=== PATIENT | female | born 1990 | race Caucasian/White ===

== ENCOUNTER 2020-06-16 07:32 | Outpatient (CLI) | payer BC, SELFPAY ==
[2020-06-16 08:18] LABS: Basophils Absolute Auto 0.1 K/mm3 (0.0-0.1); Basophils Percent Auto 0.7 % (0.2-1.2); Eosinophils Absolute Auto 0.4 K/mm3 (0-0.3); Eosinophils Percent Auto 4.2 % (0-4.4); Hematocrit 39.1 % (37.0-47.0); Immature Granulocyte Absolute 0.03 K/mm3 (0.00-0.031); Immature Granulocyte Percent A 0.3 % (0-0.5); Lymphocytes Percent Auto 35.5 % (18.3-44.2); Mean Corpuscular HGB Conc 33.2 g/dl (32-36); Mean Corpuscular Hemoglobin 30.3 pg (26-34); Mean Corpuscular Volume 91.1 fl (80-100); Mean Platelet Volume 8.9 fl (7.4-10.4); Monocytes Absolute Auto 1.2 K/mm3 (0.1-0.6); Monocytes Percent Auto 11.7 % (2.6-8.5); Neutrophils Absolute Auto 4.8 K/mm3 (1.3-6.7); Neutrophils Percent Auto 47.6 % (45.5-73.1); Platelet Count Result 356 k/mm3 (150-375); Red Blood Count 4.29 M/mm3 (4.2-5.4); Red Cell Distribution Width 13.3 % (11.5-14.5); White Blood Count 10.2 K/mm3 (4.5-10.0)
[2020-06-16 08:29] LABS: Alanine Aminotransferase 15 U/L (4-35); Albumin Level 4.4 g/dL (3.5-5.1); Alkaline Phosphatase 65 U/L (38-126); Anion Gap 8 mmol/L (8-16); Aspartate Amino Transferase 21 U/L (14-36); Bilirubin,Total 0.4 mg/dL (0.2-1.3); Blood Urea Nitrogen 18 mg/dL (7-17); Calcium 9.4 mg/dL (8.4-10.2); Carbon Dioxide 27 mmol/L (22-30); Chloride 105 mmol/L (98-107); Cholesterol 196 mg/dL (0-200); Estimated Glomerular Filt Rate > 60; Glucose 103 mg/dL (65-105); HDL Direct 34 mg/dL; Sodium 140 mmol/L (137-145); Triglycerides 310 mg/dL (<150)
[2020-06-16 08:40] LABS: LDL Cholesterol Direct 111 mg/dL
[2020-06-16 09:26] LABS: Valproic Acid 38.2 ug/mL (50-120)
[2020-06-16 09:33] LABS: Folic Acid 16.7 ng/mL (2.76->20)
[2020-06-16 09:39] LABS: Free T4 Free Thyroxine 0.88 ng/mL (0.78-2.19); Vitamin D 25 Hydroxy 37.7 ng/mL
== END 2020-06-16 07:33 | disposition home or self-care (01) ==
PROVIDERS: PCP Family Medicine
DX: Z79.899 Other long term (current) drug therapy (principal); F31.5 Bipolar disorder, current episode depressed, severe, with psychotic features; F43.12 Post-traumatic stress disorder, chronic; E06.9 Thyroiditis, unspecified
CPT/HCPCS: 36415; 80053; 80061; 80164; 82306; 82746; 83036; 84439; 84443; 85025

== ENCOUNTER 2021-03-21 07:22 | Outpatient (CLI) | payer BC, SELFPAY ==
[2021-03-21 07:49] LABS: Basophils Percent Auto 0.5 % (0.2-1.2); Eosinophils Absolute Auto 0.3 K/mm3 (0-0.3); Eosinophils Percent Auto 3.5 % (0-4.4); Hemoglobin 11.6 g/dL (12.0-15.0); Immature Granulocyte Absolute 0.04 K/mm3 (0.00-0.031); Immature Granulocyte Percent A 0.5 % (0-0.5); Lymphocytes Absolute Auto 3.22 K/mm3 (0.9-3.2); Lymphocytes Percent Auto 37.2 % (18.3-44.2); Mean Corpuscular HGB Conc 33.1 g/dl (32-36); Mean Corpuscular Hemoglobin 30.7 pg (26-34); Mean Corpuscular Volume 92.6 fl (80-100); Mean Platelet Volume 8.8 fl (7.4-10.4); Monocytes Absolute Auto 0.9 K/mm3 (0.1-0.6); Monocytes Percent Auto 10.3 % (2.6-8.5); Neutrophils Absolute Auto 4.2 K/mm3 (1.3-6.7); Platelet Count Result 327 k/mm3 (150-375); Red Blood Count 3.78 M/mm3 (4.2-5.4); Red Cell Distribution Width 13.8 % (11.5-14.5); White Blood Count 8.7 K/mm3 (4.5-10.0)
[2021-03-21 07:52] LABS: Alanine Aminotransferase 25 U/L (4-35); Albumin Level 4.2 g/dL (3.5-5.1); Alkaline Phosphatase 51 U/L (38-126); Anion Gap 13 mmol/L (8-16); Aspartate Amino Transferase 24 U/L (14-36); Bilirubin,Total 0.4 mg/dL (0.2-1.3); Blood Urea Nitrogen 20 mg/dL (7-17); Calcium 9.2 mg/dL (8.4-10.2); Carbon Dioxide 20 mmol/L (22-30); Chloride 107 mmol/L (98-107); Cholesterol 186 mg/dL (0-200); Estimated Glomerular Filt Rate > 60; Glucose 99 mg/dL (65-110); HDL Direct 41 mg/dL; Potassium 3.9 mmol/L (3.4-5.0); Sodium 140 mmol/L (137-145); Triglycerides 215 mg/dL (<150)
[2021-03-21 07:56] LABS: Hemoglobin A1C 5.2 % (<5.7)
[2021-03-21 08:03] LABS: LDL Cholesterol Direct 100 mg/dL
[2021-03-21 10:13] LABS: Iron 81 ug/dL (37-170)
[2021-03-21 10:25] LABS: Percent Iron Saturation 22 % (20-50)
[2021-03-21 11:10] LABS: Valproic Acid 70.4 ug/mL (50-120)
== END 2021-03-21 07:23 | disposition home or self-care (01) ==
PROVIDERS: PCP Nurse Practitioner Family; Visit Provider Nurse Practitioner Psychiatric/Mental Health
DX: Z51.81 Encounter for therapeutic drug level monitoring (principal); Z79.899 Other long term (current) drug therapy; F31.5 Bipolar disorder, current episode depressed, severe, with psychotic features; F41.1 Generalized anxiety disorder; F43.12 Post-traumatic stress disorder, chronic; E66.9 Obesity, unspecified; D64.9 Anemia, unspecified
CPT/HCPCS: 36415; 80053; 80061; 80164; 80165; 82728; 83036; 83540; 83550; 85025

== ENCOUNTER 2022-04-17 09:45 | Emergency (ER) | payer OTHER, SELFPAY ==
[2022-04-17 10:10] VITALS: BP 136/80; PULSE 86; RESP 16; TEMP 36.4; O2SAT 98
--- NOTE | 2022-04-17 10:46 | ED.NECK ---
HPI - Neck Pain/Injury General Chief Complaint: Neck Pain/Injury Stated Complaint: right shoulder/neck pain Time Seen by Provider: 04/17/22 10:46 Source: patient Mode of arrival: ambulatory Limitations: no limitations History of Present Illness HPI Narrative: 31 y/o female presented for c/o right neck and shoulder blade pain since last night. Endorses spasm initially started 2 days ago, was improved the following day but worsened last night. Denies injury. States she has pain when turning neck. Denies numbness, tingling, weakness or decreased ROM of the upper extremities. Taking ibuprofen for symptoms. Related Data Home Medications Medication Instructions Recorded Confirmed divalproex 250 mg tablet,delayed 250 mg PO TID 04/14/19 04/17/22 release duloxetine 60 mg capsule,delayed 60 mg PO DAILY 04/14/19 04/17/22 release gabapentin 300 mg capsule 300 mg PO TID 04/14/19 04/17/22 buspirone 15 mg tablet 15 mg DIRECTED 04/17/22 04/17/22 Allergies Allergy/AdvReac Type Severity Reaction Status Date / Time No Known Allergies Allergy Unverified 12/17/14 11:04 Review of Systems Review of Systems: CONSTITUTIONAL: Denies body aches, fever, chills EYES: Denies visual changes ENT: Denies rhinorrhea, congestion CARDIOVASCULAR: Denies chest pain, palpitations, or edema. RESPIRATORY: Denies cough or dyspnea. GASTROINTESTINAL: Denies abdominal pain, nausea, vomiting, or diarrhea. SKIN: Denies rash, itching, or wounds. MUSCULOSKELETAL: Per HPI NEUROLOGIC: Denies headache, numbness, tingling, or weakness. All systems reviewed & are unremarkable except as noted in HPI and below PMFSH Family History Family History Mother Patient's mother is in good health Father Patient's father is in good health Social History Social History Smoking status: Former smoker Tobacco type: cigarettes Second hand tobacco smoke exposure: No Smoking end date: 04/07/17 Alcohol intake: never Substance use: never Substance use type: does not use Gender identity (if verbalized by the patient): Female Comments At time of signature, I have reviewed and agree with nursing past medical, surgical, social and family history unless otherwise noted. Please see nursing chart for further information. There is no relevant family history pertinent to the presenting complaint Exam Narrative: GENERAL: Well-appearing NECK: Supple. No cervical vertebral point tenderness. Full range of motion. CHEST: Speaks in full sentences. No respiratory distress. HEART: Regular rate and rhythm. Normal and equal peripheral pulses. EXTREMITIES: Bilateral upper extremities normal strength and sensation, normal range of motion. alignment normal, pulse palpable and equal bilaterally, skin warm, dry, pink. Capillary refill less than 3 seconds. SKIN: Warm, dry, no rash. NEURO: Alert and oriented x3. PSYCH: Normal mood and affect Course Course Emergency Course: Patient is aware of diagnosis, understands and agrees to treatment plan. Anticipatory guidance given. Patient agrees to follow-up as directed and is aware of reasons to seek care at the emergency department. Portions of this record may have been created with voice recognition software Level of Care: Express Care Visit Vital Signs Vital signs: Vital Signs Temperature 97.5 F L 04/17/22 10:10 Pulse Rate 86 04/17/22 10:10 Respiratory Rate 16 04/17/22 10:10 Blood Pressure 136/80 04/17/22 10:10 Pulse Oximetry 98 04/17/22 10:10 Oxygen Delivery Room Air 04/17/22 10:10 Temperature 97.5 F L 04/17/22 10:10 Pulse Rate 86 04/17/22 10:10 Respiratory Rate 16 04/17/22 10:10 Blood Pressure 136/80 04/17/22 10:10 Pulse Oximetry 98 04/17/22 10:10 Oxygen Delivery Room Air 04/17/22 10:10 Reviewed MDM - Neck Pain/Injury MDM Narrative Medical decis
== END 2022-04-17 11:17 | disposition home or self-care (01) ==
PROVIDERS: Emergency Provider Nurse Practitioner Family; PCP Nurse Practitioner Family
DX: M54.2 Cervicalgia (principal); Z87.891 Personal history of nicotine dependence
CPT/HCPCS: 99213; G0463

== ENCOUNTER 2023-03-15 08:46 | Emergency (ER) | payer BC, SELFPAY ==
--- NOTE | ~2023-03-15 | XR_ITS ---
EXAMINATION: XR wrist RT min 3V INDICATION: Right wrist pain TECHNIQUE: Four views of the right wrist are obtained. COMPARISON: None available FINDINGS: Bone alignment is normal. There is no fracture. The joint spaces are normal. There is mild dorsal soft tissue swelling of the wrist. IMPRESSION: 1. No acute osseous abnormality. Reviewed, dictated and finalized at location [facility] [employer]
[2023-03-15 09:02] VITALS: BP 129/83; PULSE 95; RESP 18; TEMP 36.4; O2SAT 98
--- NOTE | 2023-03-15 09:58 | ED.UPPEXIN ---
HPI - Extremity Injury (Upper) General Chief Complaint: Extremity Injury, Upper Stated Complaint: rt wrist injuty Time Seen by Provider: 03/15/23 09:55 History of Present Illness HPI narrative: Patient is a 32-year-old female with history of mental health issues, here with a wrist injury. She states that yesterday she was walking and tripped off of a curb landing down onto an outstretched right hand. She notes some initial pain in the right breast which seemed to worsen throughout the last day. She notes some increased swelling and decreased ability to extend the wrist due to pain and swelling. She denies any numbness in the hand. She has not been taking anything at home for the pain. She does note that she had a prior similar injury on the left wrist in the past and needed a cast for a suspected scaphoid injury. No prior orthopedic surgeries. No additional injuries. No head trauma or loss of consciousness. Related Data Home Medications Medication Instructions Recorded Confirmed divalproex 250 mg tablet,delayed 250 mg PO TID 04/14/19 04/17/22 release duloxetine 60 mg capsule,delayed 60 mg PO DAILY 04/14/19 04/17/22 release gabapentin 300 mg capsule 300 mg PO TID 04/14/19 04/17/22 buspirone 15 mg tablet 15 mg DIRECTED 04/17/22 04/17/22 Allergies Allergy/AdvReac Type Severity Reaction Status Date / Time No Known Allergies Allergy Unverified 03/15/23 09:05 Review of Systems Review of Systems: All systems reviewed & are unremarkable except as noted in HPI and below PMFSH Family History Family History Mother Patient's mother is in good health Father Patient's father is in good health Social History Social History Smoking status: Former smoker Tobacco type: cigarettes Second hand tobacco smoke exposure: No Smoking end date: 04/07/17 Alcohol intake: never Substance use: never Substance use type: does not use Living arrangements: with family Occupation/Education: occupation Gender identity (if verbalized by the patient): Female Exam Narrative: GENERAL: Well-appearing, well-nourished, and in no acute distress. HEAD: Normocephalic, atraumatic. EYES: PERRLA and EOMI. ENT: Nares clear. Mucous membranes moist. NECK: Supple. CHEST: Clear to auscultation. No respiratory distress. HEART: Regular rate and rhythm. Normal peripheral pulses. ABDOMEN: Soft, nontender, nondistended. EXTREMITIES: Bilateral lower extremities atraumatic, left upper extremity atraumatic. No cervical, thoracic or lumbar tenderness. No tenderness over the right shoulder, right elbow. Both of these joints have normal range of motion. She does have isolated tenderness over the radial aspect of the right wrist with some focal swelling and mild ecchymosis. Normal passive range of motion with strong radial pulse. Normal sensation over the hand and normal capillary refill. Snuffbox tenderness appreciated. SKIN: Warm, dry, no rash. NEURO: No focal deficits. Alert and oriented x3. PSYCH: Normal mood and affect. Course Course Emergency Course: Chart review performed. Patient here after a fall last night with right wrist injury. Triage vitals normal. She appears to have had an UC visit in April 2022 for MSK pain in the neck and shoulder. XR was performed in triage, read as normal. Patient seen evaluated, nontoxic appearing. She is here for a isolated right wrist injury. No obvious deformity with only minimal swelling and normal passive range of motion. Normal PMS. She does have snuffbox tenderness. We will place in thumb spica and have her get repeat x-rays in the next 7-10 days. Reevaluated after splint application, she has normal PMS. She does have an orthopedic surgeon who she followed with with her previous scaphoid injury. She has her information at home and plans to contact
[2023-03-15 11:50] VITALS: BP 134/85; PULSE 86; RESP 18; O2SAT 100
== END 2023-03-15 11:51 | disposition home or self-care (01) ==
PROVIDERS: Emergency Provider Student in an Organized Health Care Education/Training Program; PCP Nurse Practitioner Family
DX: S60.211A Contusion of right wrist, initial encounter (principal); Z87.891 Personal history of nicotine dependence; W01.0XXA Fall on same level from slipping, tripping and stumbling without subsequent striking against object, initial encounter
CPT/HCPCS: 73110; 99283

== ENCOUNTER 2023-05-24 15:14 | Emergency (ER) | payer BC, SELFPAY ==
[2023-05-24 15:28] VITALS: BP 147/82; PULSE 99; RESP 16; TEMP 36.5; O2SAT 98
--- NOTE | 2023-05-24 16:15 | ED.URI ---
HPI - URI/Sore Throat General Chief Complaint: Upper Respiratory Infection Stated Complaint: throat swollen Time Seen by Provider: 05/24/23 16:15 Source: patient and RN notes reviewed Mode of arrival: ambulatory Limitations: no limitations History of Present Illness HPI Narrative: 32-year-old female presents concern for sore throat and a feeling of her uvula being swollen. She reports she has not had painful swallowing, difficulty swallowing, swollen lips, swollen tongue, trouble breathing. She reports body aches without fever. She reports she took ibuprofen and Benadryl which helped her symptoms. She denies rash MD elicited complaint: sore throat Related Data Home Medications Medication Instructions Recorded Confirmed duloxetine 60 mg capsule,delayed 60 mg PO DAILY 04/14/19 05/24/23 release gabapentin 300 mg capsule 300 mg PO TID 04/14/19 05/24/23 buspirone 15 mg tablet 15 mg DIRECTED 04/17/22 05/24/23 Allergies Allergy/AdvReac Type Severity Reaction Status Date / Time nickel AdvReac Mild Hives Verified 05/24/23 15:36 Review of Systems Review of Systems: CONSTITUTIONAL: Denies malaise, chills, sweats, or fever. EYES: Denies visual changes, redness, or discharge. ENT: Denies rhinorrhea, congestion, sinus pain, otalgia. Report swollen uvula CARDIOVASCULAR: Denies chest pain, palpitations, or edema. RESPIRATORY: Denies cough. Denies dyspnea. GASTROINTESTINAL: Denies abdominal pain, nausea, vomiting, diarrhea SKIN: Denies rash or itching. MUSCULOSKELETAL: Reports myalgia. NEUROLOGIC: Denies headache. All systems reviewed & are unremarkable except as noted in HPI and below [facility] Past Medical History Medical History (Updated 05/24/23 @ 16:23 by Leonora Lau NP) Encounter for insertion of mirena IUD (~2014) Fracture of right wrist Right wrist sprain Scaphoid fracture, wrist, closed Family History Family History Mother Patient's mother is in good health Father Patient's father is in good health Unknown Depression Social History Social History Smoking status: Current every day smoker Tobacco type: e-cigarettes/vaping Second hand tobacco smoke exposure: No Alcohol intake: never Substance use: current Substance use type: marijuana Living arrangements: with family Occupation/Education: occupation Gender identity (if verbalized by the patient): Female Comments At time of signature, agree with nursing past medical, surgical, social and family history. There is no relevant family history pertinent to the presenting complaint Exam Narrative: GENERAL: Well-appearing, well-nourished, and in no acute distress. HEAD: Normocephalic EYES: PERRLA, conjunctivae clear ENT: Nares clear. Mucous membranes moist. TM pearly loredo with sharp light reflex bilaterally; no tragal tenderness. Oropharynx not erythematous without lesions. Tonsils not enlarged and without exudate, no drooling, no hoarseness, no trismus, uvula erythematous, midline and slightly elongated. No angioedema noted. No swollen lips are swollen tongue NECK: Supple. No lymphadenopathy CHEST: Clear to auscultation, breath sounds equal. No wheezing, rhonchi, rales, or stridor. No respiratory distress, speaks in full sentences. HEART: Regular rate and rhythm. No murmur heard. SKIN: Warm, dry, no rash. NEURO: Alert and oriented x3. PSYCH: Normal mood and affect Course Course Emergency Course: Patient is aware of diagnosis, understands and agrees to treatment plan. Anticipatory guidance given. Patient agrees to follow-up as directed and is aware of reasons to seek care at the emergency department. Portions of this record may have been created with voice recognition software Level of Care: Express Care Visit Vital Signs Vital signs: Vital Signs Temperature 97.7 F 05/24/23 15:28 Pulse Rate 99 05/24
== END 2023-05-24 16:30 | disposition home or self-care (01) ==
PROVIDERS: Emergency Provider Nurse Practitioner; PCP Family Medicine
DX: K12.2 Cellulitis and abscess of mouth (principal); F17.290 Nicotine dependence, other tobacco product, uncomplicated; F12.90 Cannabis use, unspecified, uncomplicated
CPT/HCPCS: 87081; 87880; 99213; G0463

== ENCOUNTER 2023-06-04 08:50 | Emergency (ER) | payer BC, SELFPAY ==
--- NOTE | 2023-06-04 09:08 | ED.FEMALEGU ---
HPI - Female Genitourinary General Chief complaint: Urogenital-Female Stated complaint: cloudy urine,lower back pain Time Seen by Provider: 06/04/23 09:30 Source: patient, RN notes reviewed and old records reviewed Mode of arrival: ambulatory Limitations: no limitations History of Present Illness HPI Narrative: 32-year-old female who presents to [facility] with complaints of lower back pain especially the right side of lower back for 1 week duration, cloudy odorous urine and some burning with urination and feels bloated. Patient reports past history of UTI's and also pyelonephritis. Patient states that she has been drinking a lot of water and reports that she has felt feverish but has not taken her temp, is afebrile at time of triage. MD elicited complaint: UTI Pertinent past history: other (UTI's in past) Onset (ago): week(s) (1) Location of symptoms: low back Severity: moderate Severity scale (1-10): 5 Vaginal discharge: none Vaginal bleeding: none Related Data Home Medications Medication Instructions Recorded Confirmed duloxetine 60 mg capsule,delayed 60 mg PO DAILY 04/14/19 06/04/23 release gabapentin 300 mg capsule 300 mg PO TID 04/14/19 06/04/23 buspirone 15 mg tablet 15 mg DIRECTED 04/17/22 06/04/23 icosapent ethyl 1 gram capsule 1 g PO DAILY 06/04/23 06/04/23 (Vascepa) rosuvastatin 5 mg tablet 5 mg PO DAILY 06/04/23 06/04/23 Allergies Allergy/AdvReac Type Severity Reaction Status Date / Time nickel AdvReac Mild Hives Verified 06/04/23 09:10 Review of Systems Review of Systems: CONSTITUTIONAL: reports has felt feverish but has not taken her temp,, chills, or sweats. CARDIOVASCULAR: Denies chest pain, palpitations, or edema. RESPIRATORY: Denies cough or dyspnea. GASTROINTESTINAL: Denies abdominal pain, nausea, vomiting, or diarrhea. GENITOURINARY: Reports dysuria, frequency, urgency. Denies flank pain or hematuria.reports lower right back pain SKIN: Denies rash or itching. MUSCULOSKELETAL:reports low back pain especially to the right side,or myalgia. Denies CVA tenderness NEUROLOGIC: Denies headache All systems reviewed & are unremarkable except as noted in HPI and below PMFSH Past Medical History Medical History Bipolar 1 disorder Encounter for insertion of mirena IUD (~2014) Fracture of right wrist OCD (obsessive compulsive disorder) Right wrist sprain Scaphoid fracture, wrist, closed Family History Family History Mother Patient's mother is in good health Father Patient's father is in good health Unknown Depression Social History Social History Smoking status: Current every day smoker Tobacco type: e-cigarettes/vaping Second hand tobacco smoke exposure: No Alcohol intake: never Substance use: current Substance use type: marijuana Living arrangements: with family Occupation/Education: occupation Gender identity (if verbalized by the patient): Female Comments At time of signature, agree with nursing past medical, surgical, social and family history. There is no relevant family history pertinent to the presenting complaint Exam Narrative: GENERAL: Well-appearing, well-nourished, and in no acute distress. HEAD: Normocephalic, atraumatic. NECK: Supple. CHEST: Clear to auscultation. No respiratory distress.SAO2 99% on room air HEART: Regular rate and rhythm. No murmur heard. Normal peripheral pulses. ABDOMEN: Soft, nontender, nondistended, normal active bowel sounds. No CVA tenderness reports lower right sided back pain without radiation, burning with urination reported, feels like not emptying her bladder well. EXTREMITIES: Normal range of motion. No edema. SKIN: Warm, dry, no rash. NEURO: No focal deficits. Alert and oriented x3. Course Course Emergency Course: Patient is aware of diagn
[2023-06-04 09:09] VITALS: BP 131/79; PULSE 87; RESP 16; TEMP 36.8; O2SAT 99
== END 2023-06-04 10:06 | disposition home or self-care (01) ==
PROVIDERS: Emergency Provider Registered Nurse; PCP Family Medicine
DX: N39.0 Urinary tract infection, site not specified (principal); F17.290 Nicotine dependence, other tobacco product, uncomplicated; F12.90 Cannabis use, unspecified, uncomplicated
CPT/HCPCS: 81003; 87086; 99213; G0463

== ENCOUNTER 2024-10-12 06:59 | Emergency (ER) | payer OTHER, SELFPAY ==
--- OUTSIDE RECORDS SUMMARY | 2024-10-12 07:01 | XMS_ITS | Data Portability ---
Author Organization [facility] Address [address] [place] [address] Care Team Providers Care Revenue Audit Clerk Name Role Phone MEGAN RODRIGUEZ Primary Care Provider [phone] Assessment Encounter Date Assessment Date Assessment LastModified by Organization Details LastModified Time 01/13/2024 01/13/2024 Annual gynecological exam performed. Patient will come back in a year unless there are new symptoms. [email or web address] Not available 01/13/2024 17:31:38 Plan of Treatment Reminders Order Date Submit Date Provider Last Modified By Organization Details Last Modified Time Details Appointments None recorded. Lab pap, IG + HR HPV - HPV regardless but if HPV is positive need subtyping 16,18/45 Add GC/CT/Trich 2023 [facility] (Lab), [address], [place], [address], 16:04:10 Referral None recorded. Procedures None recorded. Surgeries None recorded. Imaging None recorded. Medication Orders Mirena 21 mcg/24 hr (up to 8 years) 52 mg intrauterin e device 2023 024 [email or web address] [id number], [address] [place], [place], [id number], 15:59:46 Patient TargetsNo targets recorded. Patient InstructionsNo instructions recorded. Reason for Referral None Reported. Results Created Date Observation Date Name Description Value Unit Range Abnormal Flag Note LastModifiedBy Organization Detail LastModifiedTime 01/13/2001/13/2024 IMAGE GUIDE D PAP AND HPV REGAR DLESS image guided Pap, HPV regardless of Pap result SEE RESULT S BELOW CASE REPOR T: Cytol ogy Gynec ologi imer Repor t Case: [id number] Autho gucci bonner Provi eloisa: Dermo dy, Lottie , ANP, ASSOCIATE SOFTWARE APPLICATION ENGINEER Colle cted: 01/12 1653 Order ing Locat ion: [place] [facility] Recei kareem: 01/13 0936 First Scree n: Danny Rubin, CT Speci men: Pily angelesg Pap - Image d, Cervi x STATE MENT OF ADEQU ACY: Satis facto ry for evalu ation Trans forma tion zone compo nent prese nt ----- ----- ----- ----- ----- ----- ----- ----- ----- ----- ----- ----- ----- ----- ----- ----- ----- ---- FINAL DIAGN OSIS: Negat elva for Intra epith elial Remigio quijano or Luis Miguel thakur (NIL) . Elect sylvain keys leon d by Danny Rubin, CT on 01/19 at 2:59 PM ----- ----- ----- ----- ----- ----- ----- ----- ----- ----- ----- ----- ----- ----- ----- ----- ----- ---- HPV RESUL TS: HPV mRNA E6/E7 : No HPV mRNA Detec eufemia NOTE: This high risk HPV mRNA assay detec ts fourt een high- risk HPV types (16, 18, 31, 33, 35, 39, 45, 51, 52, 56, 58, 59, 66, 68) witho ut diffe renti ation . COMME NT: This speci men was revie wed by a Cytot echno logis t and/o r Patho logis t (as indic ated in this repor t) after evalu ation using the Thinp rep Imagi ng Syste m. CLINI IMER INFOR MATIO N: Menst rual Statu s: LMP (if appli cable ): Clini imer Histo ry/Pr eviou s Pap: Type of Neopl yohan (if appli cable ): Signi fican t Clini imer Findi ngs: Other Histo ry: Hormo lorena (if appli cable ): PAP EDUCA LUCY L NOTE: The Pap Test is a scree sae test with an inher ent false negat elva rate. Liqui d-bas ed sampl ing may decre ase, but will not elimi shazia, false negat elva resul ts. A negat elva resul t does not precl ude the prese nce and/o r devel opmen t of disea se, since the prese nce of abnor mal cells in the sampl e depen ds on the locat ion of the lesio n and sampl ing techn ique. Farzana nued regul ar scree sae is the best metho d of cance r preve ntion . If repor eufemia cytol ogic findi ng do not corre late with physi imer and/o r histo rical findi ngs, furth er inves tigat ion is recom adrian d, as clini dafne abernathy nted. Not Available [facility] (Lab) [address], [place], [address], 01/20/2024 16:04:10 01/13/20 24 01/13/2024 TRICH OMONA S VAGIN TORI (RRNA ) trichomonas vaginalis ribosomal RNA (rrna) Negati ve negati ve Not Available [facility] (Lab) [address], [place], [address], 01/20/2024 16:04:11 01/13/20 24 01/13/2024 CT/GC (DEON) , THINP REP VIAL chlamydia trachomatis, PCR Negati ve negati ve Not Available [facility] (Lab) [address] [place], [address], 01/20/2024 16:04:11 01/13/20 24 01/13/2024 CT/GC (DEON) , THINP REP VIAL neisseria gonorrhoeae, PCR Negati ve negati ve Not Available [facility] (Lab) [address], [place], [address], 01/20/2024 16:04:11 Result Notes None recorded. Procedures Surgical History Date Name Laterality Status Provider Name and Address Organization Details Recorded Time 03/03/20 24 IUD Removal completed LOTTIE MCNAMARA NP [address], [place], [address], [facility] 03/03/2024 15:59:28 03/03/20 24 IUD Insertion completed LOTTIE MCNAMARA NP [address], [place], [address], [facility] 03/03/2024 15:58:32 01/13/20 24 Date of Last Pap Smear completed [facility] 03/03/2024 14:59:20 01/06/20 23 Date of Last Mammogram completed [facility] 01/13/2024 17:03:55 01/06/20 15 Laparoscopy completed [facility] 01/13/2024 17:01:41 01/06/20 15 Dilation and Curettage completed LOTTIE MCNAMARA NP [address], [place], [address], [facility] 01/13/2024 17:13:07 Imaging Results None recorded. Procedure Notes None recorded. Medical Equipment None Reported. Allergies Allergen ID Allergen Name Allergen Category Reaction Reaction Severity Criticality Documentation Date Start Date Code Code System Note Provider Name and Address Organization Details Recorded Time 11121 nickel environme nt Not available Not available Not available 01/13/2024 13292 29 [facility] 16:52:02 Medications Name Sig Start Date Stop Date Status Note LastModified by Organization Details LastModified Time Mirena 21 mcg/24 hr (up to 8 years) 52 mg intrauterin e device Take 1 device by intrauter ine route. 2023 active Not Available Not Available Not Avai lable prednisone 20 mg tablet TAKE 2 TABLETS BY MOUTH DAILY FOR 5 DAYS 01/12 completed Not Available Not Available Not Available nicotine 21 mg/24 hr daily transdermal patch APPLY 1 PATCH EVERY DAY BY TRANSDERM AL ROUTE active Not Available Not Available No t Available gabapentin 300 mg capsule TAKE 1 CAPSULE BY MOUTH THREE TIMES DAILY DIRECTED active Not Available Not Available No t Available buspirone 15 mg tablet TAKE 1 TABLET BY MOUTH THREE TIMES DAILY NEEDED active Not Available Not Available No t Available rosuvastati n 5 mg tablet TAKE 1 TABLET BY MOUTH EVERY DAY AT BEDTIME active Not Available Not Available No t Available nitrofurant oin monohydrate /macrocryst als 100 mg capsule TAKE 1 CAPSULE BY MOUTH EVERY 12 HOURS FOR 7 DAYS 01/12 completed Not Available Not Available Not Available duloxetine 60 mg capsule,del ayed release TAKE 1 CAPSULE BY MOUTH TWICE DAILY active Not Available Not Available No t Available Vascepa 1 gram capsule TAKE 2 CAPSULES BY MOUTH TWICE DAILY active Not Available Not Available No t Available Vitals Date Recorded Body height Body mass index (BMI) Body weight Systolic And Diastolic Provider Name and Address Organization Details Last Updated DateTime 01/13/2024 167.64 cm 45.1 kg/m2 169928.99 g 132/79 mm[Hg] [facility] 01/13/2024 16:51:54 Date Recorded Body height Body mass index (BMI) Body weight Systolic And Diastolic Provider Name and Address Organization Details Last Updated DateTime 03/03/2024 167.64 cm 44.7 kg/m2 356835.09 g 137/85 mm[Hg] [facility] 03/03/2024 15:33:42 Social History Question Answer Notes LastModified by Organizat ion Details LastModified Time Tobacco Smoking Status Current Every Day Smoker vape [facility] 01/13/2024 16:59:09 Do You Have An Advance Directive? No [email or web address] Information not available 01/13/2024 How Many Years Have You Consumed Alcohol? 20 [email or web address] Information not available 03/03/2024 Are You Blind Or Do You Have Difficulty Seeing? No Information not available 01/13/2024 What Is Your Level Of Caffeine Consumption? Moderate [email or web address] Information not available 01/13/2024 How Much Tobacco Do You Chew? None [email or web address] Information not available 03/03/2024 In The 14 Days Before Symptom Onset, Have You Had Close Contact With A Laboratory-confir med COVID-19 While That Case Was Ill? No Information not available 01/13/2024 In The 14 Days Before Symptom Onset, Have You Had Close Contact With A Person Who Is Under Investigation For COVID-19 While That Person Was Ill? No [email or web address] Information not available 01/13/2024 Have You Been To An Area Known To Be High Risk For COVID-19? No [email or web address] Information not available 01/13/2024 Are You Deaf Or Do You Have Serious Difficulty Hearing? No [email or web address] Information not available 03/03/2024 What Type Of Diet Are You Following? REGULAR illhifx65 Information not available 01/13/2024 Which Illicit Or Recreational Drugs Have You Used? Marijuana Last Used [email or web address] Information not available 01/13/2024 What Is The Highest Grade Or Level Of School You Have Completed Or The Highest Degree You Have Received? TD62818-6 [email or web address] Information not available 01/13/2024 Are There Any Guns Present In Your Home? No Information not available 01/13/2024 Do You Use Protection During Sex? No [email or web address] Information not available 03/03/2024 Do You Use Your Seat Belt Or Car Seat Routinely? Yes [email or web address] Information not available 03/03/2024 Are You Sexually Active? Yes [email or web address] Information not available 01/13/2024 Do You Have Smoke And Carbon Monoxide Detectors In Your Home? Yes [email or web address] Information not available 01/13/2024 At What Age Did You Start Smoking Tobacco? 17 [email or web address] Information not available 03/03/2024 How Much Tobacco Do You Smoke? 0.5 PPD [email or web address] Information not available 03/03/2024 Do You Use Sunscreen Routinely? Yes Information not available 01/13/2024 Has Tobacco Cessation Counseling Been Provided? Yes [email or web address] Information not available 01/13/2024 On What Date Was Tobacco Cessation Counseling Provided? 01/13/2024 [email or web address] Information not available 01/13/2024 How Many Years Have You Smoked Tobacco? 16 [email or web address] Information not available 01/13/2024 Have You Used IV Drugs? No [email or web address] Information not available 01/13/2024 Do You Have Difficulty Walking Or Climbing Stairs? No ixzllea10 Information not available 01/13/2024 Sex: Unknown Functional Status Question Answer Note LastModified by Organizat ion Details LastModified Time Do you use any illicit or recreational drugs? Yes [email or web address] Information not available 01/13/2024 Do you or have you ever used any other forms of tobacco or nicotine? No [email or web address] Information not available 01/13/2024 What is your level of alcohol consumption? Occasional rarely [email or web address] Information not available 01/13/2024 Are you currently employed? Yes [email or web address] Information not available 01/13/2024 Are you able to walk? YESWOREST qcxujre80 Information not available 01/13/2024 Are you able to care for yourself? Yes Information not available 01/13/2024 What is your occupation? [employer] oxtwoop13 Information not available 01/13/2024 Do you have difficulty dressing or bathing? No gvtmguo07 Information not available 01/13/2024 What is your exercise level? Moderate 2-3 times at home [email or web address] Information not available 01/13/2024 Mental Status Question Answer Note LastModified by Organization D etails LastModified Time Do you feel stressed (tense, restless, nervous, or anxious, or unable to sleep at night)? IA98773-5 [email or web address] Information not available 03/03/2024 Family History Relationship Description Onset Age of this Age Resolved Age Notes LastModified by Organization Details LastModified Time Mother Anemia [email or web address] Not available 01/13/2024 16:56:07 Mother Disorder of thyroid gland [email or web address] Not available 2023 17:07:25 Mother Hypercholest erolemia [email or web address] Not available 2023 17:09:09 Father Asthma [email or web address] Not available 01/13/2024 16:56:45 Father Heart disease [email or web address] Not available 2023 16:57:30 Father Hypercholest erolemia [email or web address] Not available 2023 17:09:09 Maternal Grandmother Asthma [email or web address] Not available 11/2023 16:56:45 Maternal Grandmother Mental disorder [email or web address] Not available 2023 17:07:14 Maternal Grandmother Malignant neoplasm of uterus gvugpis01 Not available 2023 17:08:17 Maternal Grandmother Hypercholest erolemia [email or web address] Not available 2023 17:09:09 Paternal Aunt Malignant tumor of breast 50 [email or web address] Not available 2023 15:28:18 Paternal Aunt Heart disease Not available 2023 16:58:04 Paternal Aunt Blood coagulation disorder Not available 2023 17:05:43 Paternal Aunt Hypercholest erolemia [email or web address] Not available 2023 17:09:09 Paternal Aunt Malignant tumor of breast Not available 2023 15:28:18 Paternal Grandfather Heart disease Not available 2023 16:57:55 Paternal Grandfather Hypercholest erolemia [email or web address] Not available 2023 17:09:09 Paternal Grandmother Heart disease [email or web address] Not available 2023 16:57:50 Paternal Grandmother Hypercholest erolemia [email or web address] Not available 2023 17:09:09 Paternal Uncle Heart disease [email or web address] Not available 2023 16:58:00 Paternal Uncle Hypercholest erolemia Not available 2023 17:09:09 Maternal Aunt Seizure disorder [email or web address] Not available 2023 15:28:18 Maternal Aunt Hypercholest erolemia gizbzzs47 Not available 2023 17:09:09 Maternal Grandfather Hypercholest erolemia Not available 2023 17:09:09 Maternal Uncle Hypercholest erolemia [email or web address] Not available 2023 17:09:09 Medical History Condition Response Allergies (Food, seasonal, environmental ) N Other Y Drug/Latex Allergies/Reactions N Blood Transfusion N Breast Cancer N Dermatologic Disorders N Lung Disease N Defects or Inherited Disease N Breast Problem N Gestational Diabetes N Hematologic disorders N Anesthesia Complications N History of STI N Deep Vein Thrombosis N Polycystic ovary syndrome N Anxiety Disorder N Autoimmune disease N Arthritis N Polyps N Infertility N Acid Reflux (GERD) N History of abnormal pap N Cancer N Varicosities N Stroke N Neurologic/Epilepsy N Endometriosis N High Cholesterol Y Fibromyalgia N Headaches N Kidney Disease N Heart Problems N Thyroid Problems N Kidney or Bladder Problems N GI Problems N Eating Disorder N Anemia N Art (IVF or FET) N Psychiatric Illness Y Ovarian Cancer N Diabetes N Pulmonary (TB, Asthma) N Hepatitis/Liver Disease N No Past Medical History N Eczema N Urinary Tract Infection N Abuse/Domestic Violence N Asthma N Trauma/Violence N Depression/ depression N Heart Disease N Pre-Eclampsia N Hypertension N Osteoporosis N Thrombophilias N Gynecological History Statement/Question Response Abnormal Pap N Date of Last Mammogram 01/05/2023 Date of LMP STIs/STDs N HPV Vaccine Y Current Control Method IUD Sexually Active? Y Menses Monthly N Age of first menstrual cycle 9 Date of Last Pap Smear 01/13/2024 Sexual Problems? N LMP Unknown Obstetrics History GPAL:G 0 P 0 0 0 0 Past Encounters Encounter ID Performer Location Encounter Start Date Encounter Closed Date Diagnosis/Indication Diagnosis SNOMED-CT Code Diagnosis ICD10 Code Diagnosis Note [id number] Reji Guzman MD [place] [address] [address] 01/13/2024 16:29:46 01/13/2024 17:51:39 Gynecologic examination 97571609 Z01.419 Annual gynecologi imer exam performed. Patient will come back in a year unless there are new symptoms. Suggest Calcium with Vitamin D if not eating in diet. Patient advised to get annual flu shot. Recommend yearly physicals and perform monthly breast exams. Genetic testing is available for patients with family history of cancer. Engage in safe sexual practices. Encouraged to have daily exercise. Avoid tobacco and illicit drugs, moderation of alcohol. If BMI greater than 25 dietary consult advised. If you have any questions please call or email. Pap smear- done today laboratory evaluation - PCP Venereal d isease screening 813839204 Z11.3 Pt requested STI testing for GC/CT.Disc ussed the various types of STDs, related symptoms and the potential consequenc es (including effects on fertility) of STD infections . Reviewed ways to limit exposure and prevention techniques . [facility] ion care management 921861943 Z30.9 Discussed all methods of control.Tobi victoria requests Mirena IUD removal and replacemen t. Risks/bene fits discussed. Instructed patient to take ibuprofen 600 mg PO one hour before appointmen t for IUD insertion to help reduce post-proce dure cramping.P atient verbalized understand ing, all questions answered. [id number] Reji Guzman MD [place] [address] [address] 03/03/2024 15:24:29 03/03/2024 16:06:04 Insertion of intrauterine contraceptive device 84667573 Z30.430 The patient was placed in the dorsal lithotomy position with her legs in stirrups. A speculum was inserted and the cervix was visualized . No lesions, masses, or cervical discharge noted. The IUD strings were seen at external os and grasped with sterile ring forceps and removed without difficulty . The cervix was cleansed with Betadine x3. The anterior lip of the cervix was grasped with a single tooth tenaculum. The uterus was sounded to 7 cm. The IUD was then inserted without difficulty . The refractory manager was removed and strings were cut. The tenaculum was removed. A small amount of bleeding was noted from the tenaculum site and hemostasis was achieved with pressure. The speculum was then removed. The patient tolerated the procedure well. Post-proce dure instructio ns were reviewed and pamphlet provided to the patient including time to effectiven ess, bleeding precaution s, signs/symp toms of infection, and risk of expulsion. Patient was instructed to follow up in clinic in 4 weeks for string check. Health Concerns Section Related Observation LastModified by Organization Detai ls LastModified Time None Recorded Concern Status LastModified by Organization Details LastModified Time None Recorded Advance Directives Directive N: Payers Insurance Date Sequence Insurance Name Policy Number Policy Chandra Covered Member ID Chandra Member ID Guarantor Name 03/26/2024 1 [facility] ([place]) [id number] June Penn [id number] June Penn 04/27/2024 1 *SELF PAY* Omid Penn Notes Date Note Type Note Provider Name and Address Organization Details Recorded Time 01/13/2024 text/html Annual GYNReport ed bypatient.History: no gynecologic complaints Menstrual cycle:Intermittent spotting with IUD Urinary symptoms:No hematuria; No incontinence Vulva:No genital lesion Vagina:Normal vaginal discharge Breast:No breast pain; No breast lump; No nipple discharge Sexual complaints:No sexual complaints; No pain during intercourse; Normal libido Menopausal Symptoms:No menopausal symptoms; Normal vaginal lubrication Psychological symptoms:No depression; No anxiety; No PMDD Patient presents to establish care and for annual well woman exam.Patient has Mirena IUD (10 years old), and requests removal and replacement. Patient has had occasional cramping and light spotting over the past year. Patient not currently sexually active, previously sexually active with only women. Patient uses IUD for cycle regulation d/t history of heavy, painful periods and ovarian cysts. No other DISEASE CASE MANAGER concerns today. LOTTIE MCNAMARA NP [address], [place], [address], [facility] 01/13/2024 17:47:35 03/03/2024 text/html Patient presents for IUD removal and insertion. LOTTIE MCNAMARA NP [address], [place], [address], [facility] 03/03/2024 16:03:24 OBGyn Episode No OBEpisode recorded.
--- OUTSIDE RECORDS SUMMARY | 2024-10-12 07:01 | XMS_ITS | Clinical Summary ---
Author Organization [facility] Address [address] [place] [address] Phone Care Team Providers Care Remote Recruiter Name Role Phone Roseanne Walls MD Primary Care Provider [phone] Allergies No known active allergies Medications No known medications Social History Tobacco Use Types Packs/Day Years Used Date Smoking Tobacco: Former Smokeless Tobacco: Never Alcohol Use Standard Drinks/Week Comments Not Currently 0 (1 standard drink = 0.6 oz pur e alcohol) Occasionally Comments No Sex and Gender Information Value Date Recorded Sex Assigned at Not on file Legal Sex Female 11:41 AM CDT Gender Identity Not on file Sexual Orientation Not on file Last Filed Vital Signs Vital Sign Reading Time Taken Comments Blood Pressure 140/91 08/05/2019 12:00 PM CDT Pulse 93 08/05/2019 12:31 PM CDT Temperature 36 C (96.8 F) 08/05/2019 11:56 AM CDT Respiratory Rate 18 08/05/2019 12:31 PM CDT Oxygen Saturation 97% 08/05/2019 12:31 PM CDT Inhaled Oxygen Concentration - - Weight 120.2 kg (265 lb) 08/05/2019 11:56 AM CDT Height 170.2 cm (5' 7) 08/05/2019 11:56 AM CDT Body Mass Index 41.5 08/05/2019 11:56 AM CDT Plan of Treatment Not on file Insurance Care Teams Remote Recruiter Relationship Specialty Start Date End Date Roseanne Walls MD [address] [address] PCP - General Family Medicine 08/05/19
--- OUTSIDE RECORDS SUMMARY | 2024-10-12 07:01 | XMS_ITS | Patient Health Record ---
Author Organization [facility] Address [address] [place] [address] Care Team Providers Care Nut Picker Name Role Phone Isaias HERNDON, [facility] Primary Care Provider Hattie Price Unavailable [phone] Reason For Referral No Information Medications Medication SIG (Take, Route, Frequency, Duration) Notes Start Date End Date Status Nystatin 146139 UNIT/GM External 03/19/2021 Active Fluticasone Propionate Diskus 50 MCG/ACT Inhalation *Reorder from [employer] for eRx and Interaction Alerts* 03/19/2021 Active Gabapentin 300 MG Oral 03/19/2021 A ctive Divalproex Sodium 250 MG Oral 03/19/2021 Active Benzonatate 100 MG Oral 03/19/2021 Active busPIRone HCl 15 MG Oral 03/19/2021 Active Phentermine HCl 37.5 MG Oral 03/19/2021 Active DULoxetine HCl 60 MG Oral 03/19/2021 Active Prazosin HCl 2 MG Oral 03/19/2021 A ctive Phentermine HCl 15 MG Oral 03/19/2021 Active Divalproex Sodium 125 MG Oral 03/19/2021 Active Divalproex Sodium 500 MG Oral 03/19/2021 Active Prazosin HCl 1 MG Oral 03/19/2021 A ctive Immunizations Vaccine Route Administration Date Status Comme nts Tdap Unknown 04/07/2015 Administered Tdap Unknown 04/29/2016 Administered Pfizer Biontech Covid-19 Vac cine 2nd dose Unknown 05/08/2020 Administered Pfizer Biontech Covid-19 Vac cine 2nd dose Unknown 05/29/2020 Administered Pfizer Biontech Covid-19 Vac cine 2nd dose Unknown 03/14/2021 Administered Novel [id number], preservative free Unknown 01/16/2018 Administered Novel [id number], preservative free Unknown 01/10/2019 Administered Influenza virus vaccine, quadrivalent (IIV4), split virus, 0.25 mL dosage Unknown 04/29/2016 Administered Influenza virus vaccine, quadrivalent (IIV4), split virus, 0.25 mL dosage Unknown 01/10/2019 Administered Influenza virus vaccine, quadrivalent (IIV4), split virus, 0.25 mL dosage Unknown 01/05/2021 Administered Influenza (split), seasonal, intradermal, preservative free Unknown 01/14/2017 Administered Social History Sex Assigned At : Social History Observation Description Sex Assigned At Female Encounters Encounter [facility] Date Provider [facility] [address] [facility] [address] [place] [address] 11/10/2023 Hattie Patricio Plan Of Treatment No Information Insurance Providers Payer Name Payer Address Payer Phone Subscriber Number Group Number Insured Name Patient Relationship to Insured Coverage Start Date Coverage End Date [facility] [address] [place] [address] [id number] DIONY CHASE Self - patient is the insured
--- OUTSIDE RECORDS SUMMARY | 2024-10-12 07:01 | XMS_ITS | Clinical Summary ---
Author Organization [facility] Address [address] [place] [address] Care Team Providers Care Clinical Laboratory Science Professor Name Role Phone Unavailable Primary Care Provider Unavailabl e Source Comments [facility],non-owned Affiliates and Associated Physician Practices is amultiple site organization consisting of ambulatory clinics and hospital sitesin [place], [place], [place] and [place]. This disclosure is being madepursuant to the Care Everywhere program and may not contain all information available regarding this patient. Last updated 17.[facility] [employer] Allergies Active Allergy Reactions Criticality Noted Date Comments Venlafaxine Unknown 07/31/2018 Makes her angry Quetiapine Unknown 07/31/2018 Difficulty awakening and cannot feel body Sertraline Unknown 07/31/2018 anxiety Medications * This document contains information received from the source organization and may not represent a complete record from that organization. * Be aware that medications may not be up to date on this document. Alwaysverify current medications with the patient. DULoxetine (CYMBALTA) 60 MG capsule Take 60 mg by mouth 2 times daily Active gabapentin (NEURONTIN) 300 MG capsule Take 300 mg by mouth 3 times daily Active loratadine (CLARITIN) 10 MG tablet Take 10 mg by mouth once daily Active fluticasone propionate (FLONASE) 50 MCG/ACT nasal spray [place] 2 sprays into each nostril once daily Active divalproex DR (DEPAKOTE) 125 MG tabletIndicatio ns:mood Take 1 tablet by mouth 3 times daily Reasons: mood 90 tablet 08/03/2018 Active albuterol HFA (Proventil; Ventolin; Proair) 108 (90 Base) MCG/ACT inhaler Inhale 1 (one) puff to 2 (two) puffs by mouth every 4 hours as needed 11/22/2021 Active benzonatate (Tessalon) 100 MG capsule Take 1 (one) capsule by mouth once daily as needed 07/12/2022 Active busPIRone (Buspar) 15 MG tablet Take 1 (one) tablet by mouth 3 times daily 06/25/2022 Active cyclobenzaprine (Flexeril) 10 MG tablet Take 1 (one) tablet by mouth 3 times daily as needed FOR MUSCLE SPASM 04/17/2022 Active ibuprofen (Motrin) 800 MG tablet Take 1 (one) tablet by mouth 3 times daily as needed For pain. 04/17/2022 Active Active Problems Problem Noted Date Diagnosed Date Bipolar affective disorder, mixed, severe 2018 Borderline personality disorder 08/01/2018 Family History Medical History Relation Name Comments Cancer - Lung Maternal Grandfather Schizophrenia Maternal Grandmother CAD (Coronary Artery Disease) Paternal Grandfather Diabetes - Type 2 Paternal Grandfather CAD (Coronary Artery Disease) Paternal Grandmother Relation Name Status Comments Maternal Grandfather Maternal Grandmother Paternal Grandfather Paternal Grandmother Social History Tobacco Use Types Packs/Day Years Used Date Smoking Tobacco: Never Smokeless Tobacco: Never Alcohol Use Standard Drinks/Week Comments No 0 (1 standard drink = 0.6 oz pur e alcohol) Comments No Sex and Gender Information Value Date Recorded Sex Assigned at Not on file 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 Gender Identity Not on file Sexual Orientation Not on file Last Filed Vital Signs Vital Sign Reading Time Taken Comments Blood Pressure 110/59 08/04/2018 5:05 AM CDT Pulse 80 08/04/2018 5:05 AM CDT Temperature 36.6 C (97.9 F) 08/04/2018 5:05 AM CDT Respiratory Rate 14 08/04/2018 5:05 AM CDT Oxygen Saturation 99% 08/04/2018 5:05 AM CDT Inhaled Oxygen Concentration - - Weight 107 kg (236 lb) 07/31/2018 1:50 PM CDT Height 170.2 cm (5' 7) 07/31/2018 1:50 PM CDT Body Mass Index 36.96 07/31/2018 1:50 PM CDT Plan of Treatment Health Maintenance Due Date Last Done Comments HIV SCREENING 07/25/2003 HEPATITIS C SCREENING 07/20/2006 DTAP/TDAP/TD VACCINES (1 - Tdap) 07/25/2007 HEPATITIS B VACCINE (1 of 3 - 19+ 3-dose series) 07/25/2007 PAP SMEAR 2009 COVID-19 VACCINE (1 - 2023-2 5 season) 2023 INFLUENZA VACCINE (Season Ended) 2024 ZOSTER VACCINE (1 of 2) 2038 HIB VACCINE Aged Out No longer eligi ble based on patient's age to complete this topic HPV VACCINE Aged Out No longer eligi ble based on patient's age to complete this topic MENINGOCOCCAL (Group B) VACC INE SHARED DECISION-MAKING Aged Out No longer eligibl e based on patient's age to complete this topic MENINGOCOCCAL GROUPS A/C/Y/W VACCINE Aged Out No longer eligible b ased on patient's age to complete this topic PNEUMOCOCCAL VACCINE Aged Out No long er eligible based on patient's age to complete this topic Insurance [facility] Advance Directives * Full Code (Latest Code Status on File) Date Activated Date Inactivated Comments 07/31/2018 12:40 PM 08/04/2018 12:19 PM
--- OUTSIDE RECORDS SUMMARY | 2024-10-12 07:01 | XMS_ITS | Clinical Summary ---
Author Organization [facility] Address [address] [place] [id number] Care Team Providers Care Stars Analytical Lead Name Role Phone Agatha Cardoso FREQUENCY CHECKER Primary Care Provider + Allergies Active Allergy Reactions Criticality Noted Date Comments Nickel Medications DULoxetine DR (CYMBALTA) 60 mg capsule Take 1 capsule (60 mg total) by mouth 2 (two) times a day 06/15/2022 Active busPIRone (BUSPAR) 15 mg tablet Take 1 tablet (15 mg total) by mouth 3 (three) times a day 06/25/2022 Active gabapentin (NEURONTIN) 300 mg capsule Take 1 capsule (300 mg total) by mouth 3 (three) times a day 06/30/2022 Active benzonatate (TESSALON) 100 mg capsuleIndicati ons:Cough Take 1 capsule (100 mg total) by mouth 3 (three) times a day as needed for cough 21 capsule 07/12/2022 Active Active Problems No known active problems Social History Tobacco Use Types Packs/Day Years Used Date Smoking Tobacco: Never Assessed Comments Unknown Sex and Gender Information Value Date Recorded Sex Assigned at Not on file 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 Gender Identity Not on file Sexual Orientation Not on file Obstetrics History Last Filed Vital Signs Vital Sign Reading Time Taken Comments Blood Pressure 123/80 07/12/2022 8:47 AM CDT Pulse 88 07/12/2022 8:47 AM CDT Temperature 36.8 C (98.2 F) 07/12/2022 8:47 AM CDT Respiratory Rate 18 07/12/2022 8:47 AM CDT Oxygen Saturation 94% 07/12/2022 8:47 AM CDT Inhaled Oxygen Concentration - - Weight 114.7 kg (252 lb 12.8 oz) 07/12/2022 8:47 AM CDT Height 172.7 cm (5' 7.99) 07/12/2022 8:47 AM CD T Body Mass Index 38.45 07/12/2022 8:47 AM CDT Plan of Treatment Health Maintenance Due Date Last Done Comments Cervical Cancer Screening 1988 Depression Screening 1988 Hepatitis C Screening 1988 Varicella Vaccines (1 of 2 - 13+ 2-dose series) 2001 Hepatitis B Screening 2006 Regular Well Visit/Exam 18-64 2006 Covid-19 Vaccine ( season) 2023 03/14/2021, 05/29/2020, 05/08/2020 Influenza Vaccine (#1) 2024 9, 01/16/2018, 01/14/2017, Additional history exists DTaP/Tdap/Td Vaccine (3 - Td or Tdap) 04/29/2026 04/29/2016, 04/07/2015 HPV Vaccines Aged Out No longer eligi ble based on patient's age to complete this topic Pneumococcal vaccine <65 Aged Out No longer eligible based on patient's age to complete this topic Insurance [facility] [employer] Care Teams Stars Analytical Lead Relationship Specialty Start Date End Date Agatha Cardoso NP PCP - General Nurse Practitioner 07/12/22
--- OUTSIDE RECORDS SUMMARY | 2024-10-12 07:01 | XMS_ITS | Continuity of Care Document ---
Author Name Amirah Bucio Address [address] [place] [address] Organization Unknown Address [address] [place] [address] Medications No known medications Problems No known problems
--- OUTSIDE RECORDS SUMMARY | 2024-10-12 07:01 | XMS_ITS | Encounter Summary ---
Author Organization [facility] Address [address] [place] [address] Care Team Providers Care Cardiovascular Disease Specialist Name Role Phone Unavailable Primary Care Provider Unavailabl e Encounter Details Date Type Department Care Team (Late st Contact Info) Description 08/05/2019 Lab Requisition [facility] [address] [place] [address] Unknown, Provider Social History Tobacco Use Types Packs/Day Years Used Date Smoking Tobacco: Never Assessed Comments No Sex and Gender Information Value Date Recorded Sex Assigned at Not on file 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 Answer Date of Assessment Author No 08/04/2018 9:50 AM Antonina Porter RN * Is person blind or have serious difficulty seeing? Answer Date of Assessment Author No 08/04/2018 9:50 AM Antonina Porter RN * Does person have serious difficulty walking/climbing stairs? Answer Date of Assessment Author No 08/04/2018 9:50 AM Antonina Porter RN * Does person have difficulty dressing/bathing? Answer Date of Assessment Author No 08/04/2018 9:50 AM Antonina Porter RN * Does person have difficulty doing errands alone? Answer Date of Assessment Author No 08/04/2018 9:50 AM Antonina Porter RN documented as of this encounter Mental Status * Does person have difficulty concentrating/remembering/making decisions? Answer Entry Date Author No 08/04/2018 9:50 AM Antonina Porter RN documented in this encounter Plan of Treatment Not on file documented as of this encounter Procedures Procedure Name Priority Date/Time Associated Diagnosis Comments SARS-COV-2 (COVID-19) IN HOUSE Routine 08/05/2019 12:05 PM CDT documented in this encounter Results * SARS-COV-2 (COVID-19) IN HOUSE (08/05/2019 12:05 PM CDT) COVID-19 PCR Not detected Not detected, Invalid 08/06/2019 2:00 PM CDT [facility] Microbiology SPECIMEN FROM NASOPHARYNGEAL STRUCTURE / Unknown Collection / Unknown 08/05/2019 12:05 PM CDT 08/05/2019 8:50 PM CDT Narrative [facility] - 08/06/2019 2:00 PM CDT This Real Time RT-PCR assay was developed and its performance characteristics determined by [facility]. This test has been authorized by the Food and Drug administration (FDA)under an Emergency Use Authorization (EUA). This test has been validated in accordance with the FDA's guidance document Policy for Diagnostic Testing in Laboratories Certified to perform High Complexity Testing under CLIA prior to Emergency Use Authorization for Coronavirus Disease-2019 during the Public Health Emergency issued on June 05, 2019. FDA independent review of this validation is pending. This test is only authorized for the duration of time the declaration that circumstances exist justifying the authorization of emergency use of in vitro diagnostic tests for detection of SARS-CoV-2 virus and/or diagnosis of COVID-19 infection under section 564(b)(1) of the Act, 21 U.S.C 360bbb-3 (b)(1), unless the authorization is terminated or revoked sooner. us Provider Unknown LAB - MICROBIOLOGY ORDERABLES F inal Result [facility] [address] [place] [address], [facility] [phone] documented in this encounter Visit Diagnoses Not on filedocumented in this encounter
--- OUTSIDE RECORDS SUMMARY | 2024-10-12 07:01 | XMS_ITS | Data Portability ---
Author Organization [place] - [facility] , [facility] Address [address] [place] [address] Assessment Encounter Date Assessment Date Assessment LastModified by Organization Details LastModified Time 06/24/2024 06/24/2024 Sinus infection - Supported by the patient's symptoms of sinus pressure, headaches, sinus migraines for several days, ears popping, and a stuffy nose. - Prescribed antibiotics to be taken every 12 hours for 5 days - Advised to finish the course of antibiotics even if symptoms improve - Recommended continuing Mucinex for symptom relief - Suggested drinking fluids with electrolytes, such as vitamin water or Gatorade, to maintain hydration - Encouraged eating light meals and possibly taking probiotics or yogurt for gut health - Provided care instructions via the el - Discussed contacting the pharmacy to collect antibiotics and other suggested items Not available 06/24/2024 09:22:36 08/04/2024 08/04/2024 Urinary Tract Infection - Supported by the patient's symptoms of bloating, frequent urination, lower back pain, and occasional pain with urination. The patient also has a history of kidney infections. - Prescribed Keflex, to be taken twice a day for seven days. - Advised staying well hydrated with water, electrolyte water, Pedialyte, and Gatorade. - Instructed to avoid sugary drinks and sodas. - Recommended wiping front to back and peeing before and after sex. - If symptoms do not improve, a urine sample may be needed. Not available 08/04/2024 09:06:57 Plan of Treatment Reminders Order Date Submit Date Provider Last Modified By Organization Details Last Modified Time Details Appointments None recorded. Lab None recorded. Referral None recorded. Procedures None recorded. Surgeries None recorded. Imaging None recorded. Medication Orders cephalexin 500 mg capsule 2024 025 [facility] #[id number], [address], [place], [id number], 09:05:13 amoxicillin 875 mg-potassiu m clavulanate 125 mg tablet 2024 025 [facility] #[id number], [address], [place], [id number], 09:03:53 Paxlovid 300 mg (150 mg x 2)-100 mg tablets in a dose pack 2024 [facility] #[id number], [address], [place], [id number], 5 09:10:25 benzonatate 200 mg capsule 2024 [facility] #[id number], [address], [place], [id number], 09:10:28 fluticasone propionate 50 mcg/actuati on nasal spray,suspe nsion 2024 [facility] #[id number], [address], [place], [id number], 15:31:25 Patient TargetsNo targets recorded. Patient Instructions Encounter Date Encounter Id Patient Instructions Last Modified By Organization Details Last Modified Time 06/24/2024 [id number] Acute Sinusitis: Care Instructions [email or web address] Not available 06/24/2024 09:21:43 Summary of Today 's Visit: Today, we addressed your sinus pressure and headaches, which have progressed into sinus migraines over the past week. The symptoms include ear popping and a sensation of fullness in your nose, leading to coughing. You've been using Flonase and Mucinex, but they've provided limited relief. You have a history of sinus infections occurring twice a year, typically around season changes. Sinus Infection Management: We've prescribed antibiotics to treat what we're considering a sinus infection. You should pickle pumper the prescription from [facility] and start taking it as instructed, with one pill every 12 hours for five days. It's essential to complete the full course, even if you start feeling better within 24 to 48 hours. Mucinex can also be continued to manage your symptoms. Hydration and Self-Care Tips: Continue drinking plenty of water, but incorporate electrolyte-rich fluids like Vitamin Water or Gatorade to stay hydrated and prevent throat dryness, possibly caused by mouth breathing. Consuming soups and eating light meals can also help. Once the infection clears, your throat should feel better. Probiotics and Gut Health: Consider resuming taking a probiotic or eating yogurt to support gut health, especially since antibiotics can disrupt gut bacteria balance. This can also have a positive effect on your mood and overall well-being due to the gut-brain connection. Follow-Up Actions: - toilet and laundry soap supervisor and start your antibiotics as soon as possible. - Complete the full antibiotic course for five days. - Continue using Mucinex and possibly add electrolytes to your fluid intake. - Look at the care instructions in the el for more tips on managing sinus infections. - Check with your insurance to see what other services you might be eligible for, such as virtual primary care or behavioral health therapy. Feel free to reach out if your symptoms persist or if you have any questions. It was a pleasure assisting you today, and we look forward to helping you feel better soon. [email or web address] Not available 06/24/2024 09:22:48 08/04/2024 [id number] Urinary Tract Infection (UTI) in Women: Care Instructions [email or web address] Not available 08/04/2024 09:05:07 Summary of Today 's Visit: We discussed your recent symptoms of bloating, frequent urination, and lower back pain. You noted that these symptoms started about a week ago, accompanied by some discomfort during urination but no burning sensation. You also mentioned a history of kidney infections but no current signs of vaginal discharge, itching, odor, or blood in your urine. UTI Treatment Plan: We will treat you for a urinary tract infection (UTI) with the antibiotic Keflex, which you should take twice daily for seven days. It s important to stay well-hydrated by drinking plenty of water and consuming electrolyte-rich fluids such as Pedialyte or Gatorade. Avoid sugary drinks and sodas as they can worsen your hydration status. Prevention Tips: To reduce the risk of future UTIs, practice good hygiene by wiping from front to back and ensure you urinate before and after sexual activity. These practices help prevent the movement of bacteria like E. coli from the vaginal area to the urinary tract. Pharmacy and Medication Pickup: Your prescription for Keflex has been sent electronically to your [facility] pharmacy in [facility]. Please allow about an hour to an hour and a half for processing, as the pharmacy might open at 9 a.m. They should contact you once your medication is ready for pickup. Follow-Up Actions: - Start taking Keflex twice daily for the next seven days. - Ensure adequate hydration with water and electrolyte-rich fluids. - Monitor your symptoms; if they do not improve, contact us as we may need a urine sample for further evaluation. - Please let us know if you experience any worsening symptoms or have any concerns. [email or web address] Not available 08/04/2024 09:07:01 Reason for Referral None Reported. Problems Name Problem SNOMED Code Status Onset Date Resolution Date Notes Provider Name and Address Organization Details Recorded Time Anxiety 31150565 Active 010 Verónica Rm MICROBIOLOGY ANALYST [address], [address], [place] - [facility] 5 09:13:01 Bipolar disorder 44726245 Active 010 Verónica Rm MICROBIOLOGY ANALYST [address], [address], [place] - [facility] 5 09:13:17 Seasonal allergy 573539724 Active 999 BRIE Bustamante 1 [facility] [address] [place] [address], [address], [place] - [facility] 5 09:13:49 Problem Notes None recorded. Medical Equipment None Reported. Allergies Allergen ID Allergen Name Allergen Category Reaction Reaction Severity Criticality Documentation Date Start Date Code Code System Note Provider Name and Address Organization Details Recorded Time 850204 nickel environme nt Not available Not available Not available 05/12/2024 65808 29 RxNorm Not Available [facility] 5 08:49:12 Medications Name Sig Start Date Stop Date Status Note LastModified by Organization Details LastModified Time benzonata te 200 mg capsule Take 1 capsule 3 times a day by oral route as needed. 06/24 completed Not Available Not Available Not Available cephalexi n 500 mg capsule Take 1 capsule twice a day by oral route for 7 days. 2024 active If unable to tolerate Macrobid , Bactrim, Fosfomyc in, PCNs but able to take CEPHS Not Available Not Available Not Available fluticaso ne propionat e 50 mcg/actua tion nasal spray,di pension Perdido 1 spray twice a day by intranas al route. 2024 active Not Available Not Available Not Avai lable amoxicill in 875 mg-potass ium clavulana te 125 mg tablet Take 1 tablet every 12 hours by oral route for 5 days. 08/04 completed Not Available Not Available Not Available Cymbalta 60 mg capsule,d elayed release active ADDED BY PATIENT: 2x daily Not Available Not Available Not Available buspirone active Not Available Not Nicolle ilable Not Available gabapenti n active Not Available Not Available Not Available rosuvasta tin active Not Available Not Available Not Available Paxlovid 300 mg (150 mg x 2)-100 mg tablets in a dose pack Take 300mg nirmatre lvir (2-150mg tabs) with 100mg ritonavi r (1 tab) by mouth twice daily for 5 days 06/24 completed for NORMAL renal function within 5 days of onset who are > 65 years of age OR immunoco mpromise d OR have multiple comorbid ities Not Available Not Available Not Available Vitals Date Recorded Body height Body mass index (BMI) Body weight Body temperature Provider Name and Address Organization Details Last Updated DateTime 06/24/2024 167.64 cm 43.6 kg/m2 013550.9 4 g 97.5 [degF] BRIE Bustamante 1 [facility] [address], [place], [address], [place] [facility] 06/24/2024 09:14:40 Social History None recorded. Functional Status None recorded. Mental Status None recorded. Family History Nothing Reported. Medical History No medical history recorded. Gynecological HistoryNo gynecological history recorded. Obstetrics History GPAL:G 0 P 0 0 0 0 Past Encounters Encounter ID Performer Location Encounter Start Date Encounter Closed Date Diagnosis/Indication Diagnosis SNOMED-CT Code Diagnosis ICD10 Code Diagnosis Note [id number] Summer ANIRUDH Chaudhari [place] [address] [place] [address] 05/12/2024 15:21:42 05/12/2024 15:34:01 COVID-19 881974110 U07.1 PLAN: Given patient s presentati on and symptoms, I prescribed paxlovid, benzonatat e and nasal spray. I advise the pt to use a netipot and a humidifier at night for congestion and stuffiness . Use Tylenol for any pain or fevers. Also using sudafed and mucinex can also help for symptom relief. Pt can try intranasal steroids such as flonase or Nasacort. They can try intranasal spray such as afrin as a decongesta nt. [id number] Verónica Rm MICROBIOLOGY ANALYST [place] [address] [place] [address] 06/24/2024 09:06:18 06/24/2024 18:46:26 Acute bacterial sinusitis 62256335 J01.90 [id number] Stevenson Hunt [place] [address] [place] [address] 08/04/2024 09:01:08 08/04/2024 09:11:42 Acute urinary tract infection 903922259 N39.0 Health Concerns Section Related Observation LastModified by Organization Detai ls LastModified Time None Recorded Concern Status LastModified by Organization Details LastModified Time None Recorded Advance Directives Directive None Recorded Payers Insurance Date Sequence Insurance Name Policy Number Policy Chandra Covered Member ID Chandra Member ID Guarantor Name 05/12/2024 2 *SELF PAY* ILONEX June Penn [id number] June Penn 05/12/2024 1 *SELF PAY* Omid Penn 08/06/2024 1 [facility] ILONEX June Penn [id number] June Penn 08/04/2024 [employer] ILONEX June Penn [id number] June Penn Notes Date Note Type Note Provider Name and Address Organization Details Recorded Time 05/12/2024 text/html Call connected, patient greeted, introduced myself as a Nurse Practitioner, identity/location confirmed, telephone number verified, telemedicine limitations reviewed, verbal consent obtained, allergies reviewed, PMH, social hx and family hx reviewed. Prior visits reviewed before visit. Pt is a 33yo WF who is c/o congestion, chest cough, raspy breathing, fever, diarrhea, PND.Onset was 3 days ago.She tested pos for COVID 2 days ago.She's been taking mucinex.No ear pain, vomiting or nausea. Summer ANIRUDH Chaudhari 1 [facility] [address], [place], [address], [facility] - [facility] 05/12/2024 15:32:55 06/24/2024 text/html Patient name , location, and phone number confirmed. Limitations of telemedicine evaluations reviewed, all questions answered, and verbal consent obtained to treat via secure video telemedicine interaction.Clinician attests that the clinician is physically located in the following state at the time of the visit: [place] in [place] cons[place] to the use of AI scribe technology. CC: Sinus pressure and headaches HPI: The patient presents with sinus pressure and headaches persisting since last Friday, approximately a week ago. Initially, they managed symptoms with Flonase and Mucinex, but have noticed increasing severity, particularly in the past three days, progressing into sinus migraines and exacerbated pressure in the sinus region. The patient experiences no cough but reports symptoms of nasal congestion leading to intermittent coughing, and ears popping. They regularly encounter sinus infections approximately twice a year, notably during seasonal transitions such as winter to spring and summer to fall. The patient has no gastrointestinal symptoms such as nausea, vomiting, or diarrhea. The patient indicates no known drug allergies and has completed a course of Paxlovid previously. No recent COVID exposure or need for a work note at present, maintaining a work schedule conducive to rest and recovery. BRIE Bustamante 1 [facility] [address], [place], [address], [facility] - [facility] 06/24/2024 18:11:06 08/04/2024 text/html Call connected, patient/parent greeted. Patient name, , telephone number and location verified verbally with the patient. Telemedicine limitations reviewed, answered all questions the patient had about the telehealth interaction, and verbal consent obtained to treat. Patient verbally attests they are currently physically located in the state of [place]. Provider attests they are currently physically located in the [facility]. The patient/guardian consents to the use of AI scribe technology. CC: Urinary discomfort, increased frequency, and bloating HPI: The patient reports the onset of symptoms approximately one week ago, which include bloating localized in the lower abdomen, increased urinary frequency and urgency, and occasional discomfort when urinating. The patient experiences associated lower back pain and describes the urinary discomfort as cramping at the start of urination, although not consistently painful. There is no presence of burning sensation during urination. The severity of the symptoms has prompted this medical consultation. The patient denies any recent vaginal discharge, itching, or odor. The patient acknowledges a past history of kidney infections but is currently not experiencing any blood in the urine. There are no known allergies or use of new medications, although the patient is on a regular regimen of Cymbalta and BuSpar. The patient mentions a sense of dehydration prior to the visit, which may have contributed to the current condition. Stevenson Hunt, MICROBIOLOGY ANALYST 1 [facility] [address], [place], [address], [facility] 08/04/2024 09:07:09 OBGyn Episode No OBEpisode recorded.
--- OUTSIDE RECORDS SUMMARY | 2024-10-12 07:01 | XMS_ITS | Referral Summary ---
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
--- OUTSIDE RECORDS SUMMARY | 2024-10-12 07:01 | XMS_ITS | Patient Health Record ---
Author Organization [facility] Address [address] [place] [address] Care Team Providers Care Envelope Folding Machine Operator Name Role Phone Ayad Cheng Primary Care Provider Reason For Referral No Information Problems Problem Type SNOMED Code ICD Code Onset Dates Problem Status W/U Status Risk Notes Problem Opioid use disorder (3602033668) Opioid use disorder (F11.99) Active confirmed Plan Of Treatment No Information
--- NOTE | 2024-10-12 07:07 | ECG_ITS ---
Test Date: 2024-10-12 07:18:15 Measurements Intervals [place] Rate: P: 0 RI: 0 QRS: 0 QRSD: 0 T: 0 QT: 0 QTc: 0 Interpretive Statements NORMAL SINUS RHYTHM LEFTWARD AXIS BORDERLINE ECG WARNING: DATA QUALITY MAY AFFECT INTERPRETATION No previous ECG available for comparison Electronically Signed On 10-13-2024 07:24:32 CDT by Everardo Anderson M.D.
[2024-10-12 07:10] VITALS: BP 131/77; PULSE 76; RESP 16; TEMP 36.3; O2SAT 98
--- NOTE | 2024-10-12 07:21 | ED.ALLEREA ---
HPI - Allergic Reaction General Chief complaint: Allergic Reaction Stated complaint: allergic reaction Time Seen by Provider: 10/12/24 07:21 Source: patient Mode of arrival: ambulatory History of Present Illness HPI narrative: Insect bites October 08, itching skin rash. Workup this morning with itching at the back of the throat slight trouble breathing. complaint: allergic reaction Related Data Home Medications ?Medication ?Instructions ?Recorded ?Confirmed ?Last Taken ?Type duloxetine 60 mg capsule,delayed 60 mg PO DAILY 04/14/19 06/04/23 Unknown History release gabapentin 300 mg capsule 300 mg PO TID 04/14/19 06/04/23 Unknown History buspirone 15 mg tablet 15 mg DIRECTED 04/17/22 06/04/23 Unknown History icosapent ethyl 1 gram capsule 1 g PO DAILY 06/04/23 06/04/23 Unknown History (Vascepa) rosuvastatin 5 mg tablet 5 mg PO DAILY 06/04/23 06/04/23 Unknown History Allergies Allergy/AdvReac Type Severity Reaction Status Date / Time nickel AdvReac Mild Hives Verified 06/04/23 09:10 Review of Systems Review of Systems: All systems reviewed & are unremarkable except as noted in HPI and below PMFSH Past Medical History Medical History OCD (obsessive compulsive disorder) Fracture of right wrist Scaphoid fracture, wrist, closed Right wrist sprain Encounter for insertion of mirena IUD (~2014) Bipolar 1 disorder Family History Family History Mother Patient's mother is in good health Father Patient's father is in good health Unknown Depression Social History Social History Smoking status: Current every day smoker Tobacco type: e-cigarettes/vaping Second hand tobacco smoke exposure: No Alcohol intake: never Substance use: current Substance use type: marijuana Living arrangements: with family Occupation/Education: occupation Gender identity (if verbalized by the patient): Female Exam Narrative: General appearance: Well-developed, well-nourished Skin: Normal color scattered bites with scratch dumont, no erythema, no warmth, no discharge Head: Normocephalic, nontraumatic Eyes: Clear conjunctiva ENT: Oropharynx normal, ears normal, nose normal Neck: Supple, nontender Chest and respiratory: Airway patent, no respiratory distress, no accessory muscle use Heart: Regular rate/rhythm Abdomen: Soft, nontender, no organomegaly, quiet bowel sounds Vascular: Normal peripheral pulses, normal capillary refill. Musculoskeletal: Normal range of motion, nontender back Neurologic: Alert and oriented ?3, WATER AND SEWER SYSTEMS SUPERINTENDENT is normal as tested, no gross motor deficit Course Vital Signs Vital signs: Vital Signs Temperature 36.3 C L 10/12/24 07:10 Pulse Rate 76 10/12/24 07:10 Respiratory Rate 16 10/12/24 07:10 Blood Pressure 131/77 10/12/24 07:10 Pulse Oximetry 98 10/12/24 07:10 Temperature 36.3 C L 10/12/24 07:10 Pulse Rate 80 10/12/24 07:24 Respiratory Rate 20 10/12/24 07:24 Blood Pressure 133/73 10/12/24 07:24 Pulse Oximetry 99 10/12/24 07:24 Oxygen Delivery Room Air 10/12/24 07:24 MDM - Allergic Reaction MDM Narrative Medical decision making narrative: Insect bites with allergic reaction Patient received prednisone, Zyrtec and epinephrine prior to discharge Differential Diagnosis Differential diagnosis: Likely allergic reaction Critical Care Time Critical Care Time Critical Care Time: No Discharge Plan Discharge Clinical Impression: Insect bite, Allergic reaction Patient Disposition: Home Condition: Stable Instructions: Insect Bite or Sting (ED), General Allergic Reaction (ED) Additional Instructions: Return if symptoms are worsening , call your family physician for appointment, take Tylenol as as needed for aches and pain, continue home medications. [id number]-[id number] calamine lotion Patient Language: Sinhala Prescriptions: New prednisone 20 mg tablet 40 mg PO DAILY 5 Days Qty: 10 0RF Zyrtec 10 mg capsule 10 mg PO BID PRN (Reason: allergy symptoms) Qty: 20 0RF No Action buspirone 15 mg tablet 15 mg DIRECTED rosuvastatin 5 mg tablet 5 mg PO DAILY icosapent ethyl [Vascepa] 1 gram capsule 1 g PO DAILY nitrofurantoin monohyd/m-cryst [Macrobid] 100 mg capsule 100 mg PO Q12H 7 Days Qty: 14 0RF Rx Instructions: must administer with a meal/food gabapentin 300 mg capsule 300 mg PO TID duloxetine 60 mg capsule,delayed release(DR/EC) 60 mg PO DAILY Follow-up/Referrals: Isaias,MD [employer] [Primary Care Provider] - Stand Alone Forms: Work/School Release IP
[2024-10-12 07:24] VITALS: BP 133/73; PULSE 80; RESP 20; O2SAT 99
--- OUTSIDE RECORDS SUMMARY | 2024-10-12 07:40 | XMS_ITS | Referral Summary ---
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
--- OUTSIDE RECORDS SUMMARY | 2024-10-12 07:40 | XMS_ITS | Clinical Summary ---
Author Organization [facility] Address [address] [place] [address] Phone Care Team Providers Care Soda Flaker Name Role Phone Roseanne Walls MD Primary Care Provider [phone] Allergies No known active allergies Medications No [...] Treatment Not on file Insurance Care Teams Soda Flaker Relationship Specialty Start Date End Date Roseanne Walls MD [address] [address] PCP - General Family Medicine 08/05/19
--- OUTSIDE RECORDS SUMMARY | 2024-10-12 07:40 | XMS_ITS | Clinical Summary ---
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
--- OUTSIDE RECORDS SUMMARY | 2024-10-12 07:40 | XMS_ITS | Clinical Summary ---
Author Organization [facility] Address [address] [place] [address] Care Team Providers Care Equal Opportunity Officer Name Role Phone Unavailable Primary Care Provider Unavailabl e Source Comments [facility],non-owned Affiliates and Associated Physician Practices is amultiple site organization consisting of ambulatory clinics and hospital sitesin [place], [place], [place] and [place]. This disclosure is being madepursuant to the Care Everywhere program and may not contain all information available regarding this patient. Last updated 17.[facility] Take5 Allergies Active Allergy Reactions Criticality Noted Date [...] fluticasone propionate (FLONASE) 50 MCG/ACT nasal spray Axis 2 sprays into each nostril once daily [...] on file Legal Sex Female 5:36 AM SEW ON OPERATOR Gender Identity Not on file Sexual [...] patient's age to complete this topic Insurance [employer] Advance Directives * Full Code (Latest Code Status on File) Date Activated Date Inactivated Comments 07/31/2018 12:40 PM 08/04/2018 12:19 PM
--- OUTSIDE RECORDS SUMMARY | 2024-10-12 07:40 | XMS_ITS | Encounter Summary ---
Author Organization [facility] Address [address] [place] [place] [address] Care Team Providers Care Cytology Laboratory Manager Name Role Phone Unavailable Primary Care Provider Unavailabl e Encounter Details Date Type Department Care Team (Late st Contact Info) Description 08/05/2019 Lab Requisition [facility] [address] [place] [address] Unknown, Provider Social History Tobacco Use Types Packs/Day Years Used Date Smoking Tobacco: Never Assessed Comments No Sex and Gender Information Value Date Recorded Sex Assigned at Not on file 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 Microbiology SPECIMEN FROM NASOPHARYNGEAL STRUCTURE / Unknown Collection / Unknown 08/05/2019 12:05 PM CDT 08/05/2019 8:[address] [facility] - 08/06/2019 2:00 PM CDT This Real Time RT-PCR assay was developed and its performance characteristics determined by [facility]. This test has been authorized [...] LAB - MICROBIOLOGY ORDERABLES F inal Result [facility] [address] [place] [address], [facility] [phone] documented in this encounter Visit Diagnoses Not on filedocumented in this encounter
[2024-10-12] MEDS: LORATADINE 10 MG TABLET PO (07:41)
[2024-10-12] MEDS: EPINEPHrine HCL INJ 1 MG/ML AMPUL 0.3 MG IM (07:44)
[2024-10-12 07:58] VITALS: BP 138/70; PULSE 74; RESP 20; O2SAT 100
== END 2024-10-12 08:04 | disposition home or self-care (01) ==
LOC: ANHED 07:38
PROVIDERS: Emergency Provider Emergency Medicine; PCP Family Medicine
DX: T14.8XXA Other injury of unspecified body region, initial encounter (principal); T78.40XA Allergy, unspecified, initial encounter; W57.XXXA Bitten or stung by nonvenomous insect and other nonvenomous arthropods, initial encounter; F31.9 Bipolar disorder, unspecified; F42.9 Obsessive-compulsive disorder, unspecified; F17.290 Nicotine dependence, other tobacco product, uncomplicated; F12.90 Cannabis use, unspecified, uncomplicated
CPT/HCPCS: 93005; 96372; 99283; A9270; J0171; J7512